=== PATIENT | male | born 1995 | race Caucasian/White ===

== ENCOUNTER 2017-02-08 19:38 | Emergency (ER) | payer SELFPAY ==
[2017-02-08 20:14] LABS: % IMMATURE GRANULYOCYTES 0.1 % (0.0-1.1); ABSOLUTE IMMATURE GRANULOCYTES 0.01 10^3/uL (0.00-0.10); ADD DIFF? NO; ADD MORPH? NO; ADD SCAN? NO; ATYPICAL LYMPHOCYTE FLAG 10 (0-99); FRAGMENT RBC FLAG 0 (0-99); HEMATOCRIT 45.4 % (40.0-51.0); HEMOGLOBIN 16.4 g/dL (13.7-17.5); LEFT SHIFT FLG 0 (0-99); LIPEMIA HEMOLYSIS FLAG 90 (0-99); MEAN CELL HEMOGLOBIN 31.7 pg (27.9-34.1); MEAN CELL HEMOGLOBIN CONCENTR. 36.1 g/dL (32.4-36.7); MEAN CELL VOLUME 87.6 fL (81.5-99.8); MEAN PLATELET VOLUME 11.5 fL (8.7-11.7); PLATELET CLUMPS FLAG 0 (0-99); PLATELET COUNT 275 10^3/uL (150-400); RED BLOOD CELL COUNT 5.18 10^6/uL (4.40-6.38); RED CELL DISTRIBUTION WIDTH 11.7 % (11.5-15.2)
--- NOTE | 2017-02-08 20:22 | EDPHY ---
HPI/HX/ROS/PE/MDM Narrative: CHIEF COMPLAINT: Black stools. HISTORY OF PRESENT ILLNESS: The patient is a 21-year-old male with a history of GERD and hemorrhoids who presents with 3 days of black stool. The stools were initially formed but became "soupy" today. There was red blood in the toilet the first 2 days but not today. He admits associated mild abdominal pain. He denies dizziness, lightheadedness, fever. No chills, chest pain, shortness of breath, palpitations, vomiting, flank pain, urinary complaints, headache, lightheadedness. REVIEW OF SYSTEMS: Aside from elements discussed in the HPI, a comprehensive 10-point review of systems was reviewed and is negative. PAST MEDICAL HISTORY: GERD, hemorrhoids. SOCIAL HISTORY: Uses marijuana, social alcohol use, recently moved here from [place], [place], works at [employer] in [place]. VITAL SIGNS: Reviewed by me GENERAL: Well-developed, well-nourished, resting comfortably in no respiratory distress. HEENT: Atraumatic. Eyes: No icterus, no injection. Mouth: moist mucous membranes. No erythema or lesions. Neck: supple with no adenopathy. LUNGS: Clear to auscultation bilaterally, no wheezes, rhonchi or rales. CARDIAC: Regular rate and rhythm, no rubs, murmurs or gallops. ABDOMEN: Soft, nontender, nondistended, bowel sounds normal. BACK: No CVA tenderness. RECTAL: No hemorrhoids, minimal stool on glove, yellow/brown. No melena, no blood seen. EXTREMITIES: No trauma. No edema. Range of motion is normal throughout. NEURO: Alert and oriented, grossly nonfocal. SKIN: Warm and dry, no rash. PSYCHIATRIC: Normal mentation, no agitation. Portions of this note were transcribed by a medical territory manager. I personally performed a history, physical exam, medical decision making, and confirmed accuracy of information the transcribed note. ED Course: 21-year-old male with a history of GERD and hemorrhoids presents with black tarry stools for the past 3 days. For the first 2 he also noticed red blood in the toilet and the stools were formed. Today the stools were loose and there was no red blood. He has mild associated abdominal pain. An IV was established and labs ordered. I performed a rectal exam. There were no internal hemorrhoids. The stool will be sent to the lab for occult testing. I reviewed the patient's lab work. Patient's H&H is normal. Stool is negative for blood. Lab work is unremarkable. He will be discharged with GI follow up. I have instructed him to take a 2 week course of Omeprazole. MDM: Diff dx considered included lower gi bleeding, upper gi bleeding, reddish colored stools, hemorroid, anal fissure, bloody diarrhea from infectious cause. - Data Points Laboratory Results: Laboratory Results 02/08/17 20:07 02/08/17 20:07 General Time Seen by Provider: 02/08/17 20:00 Initial Vital Signs: Initial Vital Signs Temperature (C) 36.5 C 02/08/17 19:39 Heart Rate 76 02/08/17 19:39 Respiratory Rate 18 02/08/17 19:39 Blood Pressure 121/87 H 02/08/17 19:39 O2 Sat (%) 97 02/08/17 19:39 O2 Delivery Mode Room Air Allergies/Adverse Reactions: No Known Allergies Allergy (Verified 02/08/17 19:45) Home Medications: Medication Instructions Recorded NK [No Known Home Meds] 12/01/15 Departure - Departure Disposition: Home, Routine, Self-Care Clinical Impression: History of bloody stools Condition: Good Instructions: Acute Diarrhea (ED), Rectal Bleeding (ED) Additional Instructions: Call Dr. Irizarry, gastroenterology, tomorrow to set up a follow up appointment. Take a 2 week course of Omeprazole as instructed. Return to the emergency department if you experience any serious worsening of condition. Referrals: Arnol Irizarry MD [Medical Doctor] - As per Instructions Stand Alone Forms: Work Excuse Report Scribed for: Coco Peres Report Scribed by: Tim Salinas Date of Report: 02/08/17 Time of Report: 20:33
[2017-02-08 20:33] LABS: ANION GAP 11 mEq/L (8-16); CALCIUM 9.9 mg/dL (8.5-10.4); CARBON DIOXIDE 23 mEq/l (22-31); CHLORIDE 105 mEq/L (97-110); CREATININE 0.8 mg/dL (0.7-1.3); GLOMERULAR FILTRATION RATE > 60; GLUCOSE 96 mg/dL (70-100); SODIUM 139 mEq/L (134-144)
[2017-02-08 21:07] VITALS: BP 128/78; PULSE 70; RESP 14; TEMP 97.9; O2SAT 94
== END 2017-02-08 21:10 | disposition home or self-care (01) ==
DX: Z87.19 Personal history of other diseases of the digestive system (principal)